=== PATIENT | male | born 1985 | race African-American/Black ===

== ENCOUNTER 2020-12-09 12:58 | Outpatient (CLI) | payer OTHER ==
[2020-12-09 13:45] VITALS: BP 121/81
--- NOTE | 2020-12-09 13:45 | SLEEP CARE CONSULTATION ---
Information from patient questionnaire entered by Alexa Mtz. I have reviewed and concur with the information entered by Alexa Mtz. This document represents the service I personally performed and the decisions made by me, Flaquita Gill ARNP. History of Present Illness Service Date and Time: 12/09/2020 1258 Reason for Visit: New patient Chief Complaint: reports: Unrefreshed sleep, Snoring, Excessive daytime sleepiness, Observed pauses in breathing (jerks with it), Fatigue, Frequent awakenings at night Date of Onset: since 2009 Usual bedtime: 9 - 10 pm Time it takes to fall asleep: a few minutes Snores at night: Yes Observed to quit breathing while asleep: Yes Sleeps alone due to snoring: Yes (occasionally) Number of times waking at night: 5 or more Reasons for waking at night: reports: Snoring, Other (unknown reason). denies: Choking, Gasping for air Toss, Turn, or Twitch while sleeping: Yes Recalls having dreams: Yes Usually gets out of bed at: 5 am; weekends [id number] Feels refreshed in the morning: No Morning headache: Yes (resolves around lunch time 11am - 12pm; 3 days a week) Sleepy or fatigued during the day: Yes Ever fallen asleep while driving: Yes (drowsy driving; has feel asleep at the light, no accidents) Takes day naps: Yes (4 days a week, about 40 minutes) Dreams during day naps: Yes Prior sleep studies: No Additional HPI information: I had the pleasure of seeing SEAN VIEAR today regarding the possibility of him having a sleep disorder. His current complaints are excessive daytime sleepiness, fatigue, frequent night awakenings and snoring. 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 He states that he is always very tired in the morning. He does not feel like he rests at night. He snores loudly and sometimes his has to leave the room to be able to get to sleep. His has seen him stop breathing in the night. She has noted that he will jerk and then fall back to sleep and snore. He wakes up with headaches several days a week that last until afternoon. He has had times when he was light sensitive with the headaches in the morning. He has had issues with drowsy driving and has fallen asleep when he has been stopped and waiting at a traffic light. He avoids driving when he is sleepy. His mother snores but has not been evaluated for sleep apnea. - Parasomnia Symptoms Ever been unable to move upon waking from sleep: Yes Walks in sleep: No Talks in sleep: Yes Ever acted out dreams in sleep: Yes Ever felt weak in the knees when startled or emotional: Yes (has not falled to ground) Bothered by creepy, crawly, restless sensations in legs: Yes (normally when sitting for a long period of time, feet fall asleep, 1 x week) Problems with memory or concentration: Yes (both equally) Subjective Initial Katy Sleepiness Scale score: 18 (in 2020) Past Medical History Past Medical History: reports: Mood disorder, Other (PTSD) Social History The patient's occupation is a Active . Patient is and lives in [place]. Have you smoked in the past 12 months: No Alcohol use: Yes Alcohol amount and frequency: 1 glass of wine less than once a month Caffeine use: Yes Caffeine amount and frequency: 1 cup of coffee 3 out of 7 days Family History Family history of sleep disordered breathing: Yes Family Hx Sleep Apnea: Mother: Snoring, Sleep apnea - Untreated (not diagnosed) Allergies and Home Medications Drug allergies reviewed: Yes (NKDA) Home medication list reviewed: Yes (no daily medications or supplements) Review of Systems Weight gain over past 5 years: 5 Weight loss over past 5 years: 5 Cardiovascular: denies: high blood pressure Gastrointestinal: denies: heartburn Neurological: reports: headaches. denies: head trauma Psychiatric: reports: mood disorder (PTSD), other (PTSD). denies: anxiety, depression Ear/Nose/Throat: reports: wisdom teeth removed (2 out of 4). denies: injury to nose, tonsillectomy Endocrine: reports: sluggishness Immunologic: denies: allergies to food or environment Physical Exam Blood Pressure: 121/81 Cuff size: wrist Heart Rate: 66 O2 Saturation: 99 Height: 5 ft 9 in Weight: 182 lb Body Mass Index: 26.9 BMI Classification: Overweight Neck circumference: 15.75 (inches) Nostrils: patent to airflow Mouth and throat: narrow oropharynx Soft palate: long Uvula visualization: 25% Mallampati Class III Tongue: enlarged in size with teeth whyte on lateral edges Tonsils: 1+ Neck: normal w/o lymphadenopathy or thyromegaly Heart: regular rate and rhythm Lungs: clear bilaterally Impression and Plan 1. Suspected Obstructive Sleep Apnea-Hypopnea Syndrome, as suggested by a history of loud and irregular snoring, observed cessation of breath while asleep, morning headache, frequent awakening during the night, unrefreshed sleep, cognitive impairment, and excessive daytime sleepiness. Narrow oropharynx and obesity are common predisposing factors for obstructive sleep apnea-hypopnea syndrome. I recommend proceeding to polysomnography to confirm the diagnosis and to assess severity. If the patient has significant sleep disordered breathing, a manual CPAP titration study will also be performed to find the optimal treatment pressure. I informed the patient of what the sleep studies involve and after some discussion, obtained agreement to proceed. The pathophysiology of obstructive sleep apnea-hypopnea syndrome was discussed with the patient and health risks of cardiovascular and cerebrovascular disease if not treated. Risks of drowsy driving discussed in detail and patient advised to avoid long distance driving and to gizzard puller at the first sign of drowsiness. Patient agreed to plan. [facility] drowsy driving brochure given. * Schedule polysomnography +- manual CPAP titration study and return in 1-2 weeks after the study to discuss result and initiate therapy. * Avoid long distance driving or driving when feeling sleepy. * Avoid alcohol, sedative and muscle relaxant around bedtime. * Attempt to lose weight. * Review instructions provided by trained office staff on how to prepare for the sleep study. * Return for follow-up after sleep study completed. Counseling Topics: Weight loss health impact Visit Type: In Office Time Spent with Patient (minutes): 31 Provider Statement: I spent 100% of the Face to Face Visit with the patient with greater than 50% spent counseling the patient and coordination of care.
== END 2020-12-09 12:59 | disposition home or self-care (01) ==
LOC: SC 12:58
PROVIDERS: ATTEND Nurse Practitioner Family
DX: R06.83 Snoring (principal); R06.81 Apnea, not elsewhere classified; R51.9 Headache, unspecified; G47.8 Other sleep disorders; G47.10 Hypersomnia, unspecified; R41.89 Other symptoms and signs involving cognitive functions and awareness; E66.3 Overweight; Z68.26 Body mass index [BMI] 26.0-26.9, adult
CPT/HCPCS: 99203; 99212

== ENCOUNTER 2020-12-20 13:13 | Outpatient (CLI) | payer OTHER | END 2020-12-20 13:14 | disposition home or self-care (01) | LOC: SC 13:13 | PROVIDERS: ATTEND Nurse Practitioner Family | DX: R06.83 Snoring (principal); R51.9 Headache, unspecified; G47.8 Other sleep disorders; G47.10 Hypersomnia, unspecified; R06.81 Apnea, not elsewhere classified; R41.89 Other symptoms and signs involving cognitive functions and awareness | CPT/HCPCS: 95806 ==

== ENCOUNTER 2021-01-14 15:13 | Outpatient (CLI) | payer OTHER ==
--- NOTE | 2021-01-14 15:28 | SLEEP CARE CONSULTATION ---
Information from patient questionnaire entered by Alexa Mtz. I have reviewed and concur with the information entered by Alexa Mtz. This document represents the service I personally performed and the decisions made by , Flaquita Gill ARNP. History of Present Illness Service Date and Time: 01/14/2021 1513 Initial Ideal Sleepiness Scale score: 18 (in 2020) Current Ideal Sleepiness Scale score: 17 Additional HPI information: SEAN VIERA returns for follow up and results of the recently performed home sleep study. The patient was informed of the following findings: no significant sleep disordered breathing with an average AHI of 2.2 and a jaron oxygen saturation of 91%. I explained the pathophysiology behind obstructive sleep apnea. Patient does not have sleep apnea and was advised how weight gain could increase the risk of developing sleep apnea in the future. I strongly encouraged the patient to lose weight. Patient has mild snoring. Snoring can be reduced by weight loss. Weight loss is best achieved with diet consult. Patient instructed to contact PCP for referral. Snoring can also be treated with an oral appliance from a dentist. Advised to check insurance coverage. In addition, an ENT evaluation can be do to see if other treatment is indicated. Patient counseled not drink alcohol less than 4 hours before bedtime as it can increase snoring and apnea. Patient was cautioned about risks of drowsy driving until sleepiness symptoms resolve. Sleep Study - Results Type of Sleep Study: Home sleep study Prior sleep studies: No Polysomnography/Home Sleep Study results: Physician Impression: The quality of the study is good. The length of the study is adequate (> 240 minutes). Please also see the tabulated and graphic data. 1. No significant sleep disordered breathing, with an AHI of 2.2/hr and jaron SaO2 of 91%. During the study, the patient had 8 apneas (8 obstructive, 0 central, 0 mixed) and 6 hypopneas. The longest episode lasted 35.0 seconds. The patient slept adequately in supine position (supine AHI was 2.6 and non-supine, 1.77). Allergies and Home Medications Home medication list reviewed: Yes (no changes) Review of Systems Review of systems same as previous: Yes (no changes) Physical Exam Heart Rate: 72 O2 Saturation: 94 Height: 5 ft 9 in Weight: 194 lb Body Mass Index: 28.6 BMI Classification: Overweight Impression and Plan Snoring but no significant sleep disordered breathing. Patient advised that often weight loss will reduce snoring as well as apnea risk. An oral appliance can also be used for snoring. This would require a dental consultation. Patient cautioned not to use other online appliances as can cause bite issues. A list of accredited dentists in [facility] and one local dentist who makes oral appliances is available in office. Patient is advised to check if insurance will cover. An ENT consult can also be helpful to determine if any other treatment is an option. * Attempt to lose weight * Avoid alcohol consumption near bedtime * The patient is cautioned about driving until sleepiness is completely resolved. * Return as needed. Counseling Topics: Weight loss health impact Visit Type: In Office Time Spent with Patient (minutes): 10 Provider Statement: I spent 100% of the Face to Face Visit with the patient with greater than 50% spent counseling the patient and coordination of care.
== END 2021-01-14 15:14 | disposition home or self-care (01) ==
LOC: SC 15:13
PROVIDERS: ATTEND Nurse Practitioner Family
DX: R06.83 Snoring (principal)
CPT/HCPCS: 99212